=== PATIENT | female | born 1945 | race American Indian/Alaskan Native ===

== ENCOUNTER 2019-06-26 09:57 | Outpatient (CLI) | payer MEDICARE, OTHER ==
--- NOTE | 2019-06-26 12:32 | Mammography Report ---
DIGITAL DIAGNOSTIC MAMMOGRAM WITH CAD, 06/26/2019 INDICATION: Patient presents for further evaluation of an area of palpable concern in the right breas t felt by the patient's physician. The patient cannot feel the lump and is uncertain of its location. Patient has history of prior right breast biopsy. TECHNIQUE: Digital right mammographic imaging was performed. Spot compression views were obtained. This examination was interpreted with the benefit of Computer-aided Detection analysis. COMPARISON: Prior mammograms dated 02/04/2018 and 02/06/2019 FINDINGS: Breast Density: There are scattered areas of fibroglandular density. There are multiple stable oil cysts seen in the right breast. The largest peripherally calcified oil cysts include a 3.2 cm peripherally calcified oil cyst in the right breast 9:00 position located 3 cm from the nipple, and a 2.9 cm peripherally calcified oil cyst in the right breast 3:00 position loca ada 4 cm from the nipple. There is a stable focal asymmetry in the right breast upper outer quadrant with associated biopsy cli ps. Scattered benign-appearing calcifications in the right breast are unchanged. IMPRESSION: 1. Stable peripherally calcified oil cysts in the right breast. It is uncertain if one of these cysts accounts for the area of palpable concern felt by the patient's physician, as the patient cannot fee l the lump and does not know the location. Recommend clinical correlation with the size and location of the dominant oil cysts described above. 2. Stable focal asymmetry in the right breast with associated biopsy clips. BI-RADS Category 2: Benign. Recommend return to routine screening mammogram in 01/2020. A "normal" or negative report should not discourage follow up or biopsy of a clinically significant f inding. A written summary of these findings will be mailed to the patient. The patient will be entered into a mammography reporting system which will generate a reminder letter for the patient's next appointmen t at the appropriate interval. FURTHER INFORMATION: According to the [employer], yearly mammograms are recommend ed starting at age 40 and continuing as long as a woman is in good health. Breast MRI is recommended for women with an approximately 20-25% or greater lifetime risk of breast cancer, including women wi th a strong family history of breast or ovarian cancer and women who have been treated for Hodgkin's disease. Signer Name: Mariluz Novak MD Signed: 06/26/2019 12:28 PM Workstation Name: [id number]
== END 2019-06-26 09:58 | disposition home or self-care (01) ==
LOC: SPVWC 09:57
PROVIDERS: ATTEND Obstetrics & Gynecology
DX: N63.13 Unspecified lump in the right breast, lower outer quadrant (principal)